=== PATIENT | male | born 1960 | race Asian ===

== ENCOUNTER → 2017-10-18 11:32 | Emergency (ER) | payer OTHER ==
--- OUTSIDE RECORDS SUMMARY | 2017-10-18 12:28 | XMS REPORT ---
:1960 External Reference #:[id number] Author Organization [employer] Address [address] [address] Phone [phone] Care Team Providers Name Role Phone Sheng Hameed III, MD Primary Care Physician Unavailable Payers Type Date Identification Numbers Payment Provider Subscriber Commercial Effective: Policy Number: [id number] Junior Jarquin 2017 Group Number: [id number] [address] PayID: [id number] [place] [address] Problems Description No Information Family History Date Family Member(s) Problem(s) Comments General No Current Problems Social History Type Date Description Comments Lives With Girlfriend Occupation Currently Working ETOH Use Denies alcohol use Smoking Patient is a current smoker, smokes every day Exercise Type/Frequency Does not exercise Allergies, Adverse Reactions, Alerts Date Description Reaction Status Severity Comments 08/08/2015 NKDA active Medications Medication Date Status Form Strength Qnty SIG Indications Ordering Provider Multivitamins / Active Capsules 1 by Unknown 0000 mouth every day Ra Allergy / Active Tablets 180mg daily Unknown Relief 0000 Fluticasone / Active Suspension 50mcg/Act 2 sprays Unknown Propionate 0000 each nostril daily as needed [place] 08/11/ Hx Tablets 5-325mg 40tabs one to Emely 2015 - two tabs Gutierrez, 10/17/ by mouth M.D. 2017 every 4-6 hours as needed pain [place] 08/08/ Hx Tablets 5-325mg 30tabs 1-2 by S66.121A Emely 2014 - mouth Gutierrez, 10/17/ q4-6 M.D. 2017 hour as needed pain Keflex / Hx Capsules 500mg 1 by Unknown 0000 - mouth 2017 times a day Vital Signs Date Vital Result Comment 10/18/2017 Height 65.75 inches 5'5.75" Weight 125.00 lb Heart Rate 75 /min BP Systolic Sitting 98 mmHg BP Diastolic Sitting 78 mmHg Body Temperature 97.6 F O2 % BldC Oximetry 98 % BMI (Body Mass Index) 20.3 kg/m2 09/29/2015 Height 67 inches 5'7" Weight 130.00 lb Pain Level 5 BMI (Body Mass Index) 20.4 kg/m2 09/08/2015 Height 67 inches 5'7" Weight 130.00 lb Pain Level 5 BMI (Body Mass Index) 20.4 kg/m2 08/29/2015 Height 67 inches 5'7" Weight 130.00 lb Pain Level 1 BMI (Body Mass Index) 20.4 kg/m2 08/11/2015 Height 67 inches 5'7" Weight 130.00 lb Pain Level 3 BMI (Body Mass Index) 20.4 kg/m2 08/08/2015 Height 67 inches 5'7" Weight 130.00 lb Heart Rate 70 /min BP Systolic Sitting 134 mmHg BP Diastolic Sitting 95 mmHg Pain Level 8 BMI (Body Mass Index) 20.4 kg/m2 Results Description No Information Procedures Date CPT Code Description Status 08/16/2015 02572 Repair Flexor Tendon W/O Free Graft Completed 08/16/2015 65613 Repair Flexor Tendon W/O Free Graft Completed 08/16/2015 87491 Repair Flexor Tendon W/O Free Graft Completed 08/16/2015 92235 Repair Flexor Tendon W/O Free Graft Completed Encounters Type Date Location Provider CPT E/M Dx Office Visit 08/11/2015 [facility] Gutierrez [address] S66.121D 8:30a [facility] S66.121D S66.123D S66.123D S64.491D S64.491D Office Visit 08/08/2015 1:10p [facility]ely Gutierrez, [address] S66.121A [facility] S64.491A S66.123A S66.121A Plan of Care 10/18/2017 - Sheng Hameed M.D.R45.851 Suicidal ideationsComments:PHQ-9 score of 24 including active daily suicidal ideation; sx all due to his unrelenting vertigo per pt, but with active suicidal thoughts, emergent mental health eval via the ER [id number] Dizziness and giddinessComments:15 month hx steady daily vertigo sx. ? abrupt onset, aggravated by any head movments and a bit better at rest. (+) lengReferral:John Sanches M.D., Neurology
[2017-10-18 12:35] LABS: Hematocrit 43 % (42-52); Hemoglobin 14.7 g/dl (14.0-18.0); Mean Corpuscular HGB Conc 34 g/dl (31-36); Mean Corpuscular Hemoglobin 33 pg (27-31); Mean Corpuscular Volume 97 fL (80-94); Mean Platelet Volume 7 um3 (7.4-10.4); Red Blood Count 4.48 10^6/ul (4.0-5.4); Red Cell Distribution Width 14 % (10.5-15); White Blood Count 13.7 10^3/ul (3.5-10.8)
[2017-10-18 12:45] LABS: Urine Bilirubin Negative (Negative); Urine Glucose Negative (Negative); Urine Nitrite Negative (Negative)
[2017-10-18 12:50] LABS: ALT 16 U/L (7-52); AST 17 U/L (13-39); Albumin 4.3 g/dL (3.2-5.2); Alkaline Phosphatase 48 U/L (34-104); Anion Gap 4 mmol/L (2-11); BUN/Creatinine Ratio 10.3 (8-20); Blood Urea Nitrogen 9 mg/dL (6-24); CO2 Carbon Dioxide 30 mmol/L (22-32); Calcium 9.1 mg/dL (8.6-10.3); Chloride 105 mmol/L (101-111); EGFR African American 117.2 (>60); EGFR Non-African American 91.1 (>60); Globulin 2.8 g/dL (2-4); Glucose 95 mg/dL (70-100); Potassium 4.2 mmol/L (3.5-5.0); Sodium 139 mmol/L (133-145); Total Protein 7.1 g/dL (6.4-8.9)
[2017-10-18 12:56] LABS: Benzodiazepine Urine Screen None Detected (None Detect)
[2017-10-18 13:13] LABS: Acetaminophen < 15 mcg/mL; Alcohol < 10 mg/dL (<10); Salicylate < 2.50 mg/dL (<30)
[2017-10-18 13:27] LABS: TSH (Thyroid Stimulating Horm) 0.84 mcIU/mL (0.34-5.60)
[2017-10-18 14:37] VITALS: BP 116/77
--- NOTE | 2017-10-19 07:57 | ED ---
Dago Gaspar Angela, scribed for Sheng Pablo MD on 10/18/17 at 1229 . Psychiatric Complaint - HPI Summary HPI Summary: This pt is a 57 y/o male [facility]. Pt's PCP, Dr. Hameed, referred the pt to the ED for a concern for SI. Pt notes he has a lot of stress in his life now and admits feeling depressed. He denies SI thoughts and plan. Per , pt gets short tempered. Pt additionally c/o dizziness and nausea, he states he still feels dizzy. Pt had an MRI for dizziness that was negative. Pt is in physical therapy for vertigo. He has not seen a neurologist yet but will see one if he doesn't pass his test today at PT. Per , neurologist will call next week for an appointment. Pt finished meclizine for the dizziness, but notes it does not alleviate his nausea. - History Of Current Complaint Chief Complaint: EDMentalHealth Time Seen by Provider: 10/18/17 11:50 Hx Obtained From: Patient Onset/Duration: Lasting Days, Still Present Timing: Days Character: Depressed Aggravating Factor(s): Recent Stress Alleviating Factor(s): Nothing Has Suicidal: Denies: Thoughts, With A Plan - Allergies/Home Medications Allergies/Adverse Reactions: Allergies Allergy/AdvReac Type Severity Reaction Status Date / Time No Known Allergies Allergy Verified 08/16/15 12:15 Home Medications: Home Medications Fexofenadine HCl [Allergy Relief] 180 mg PO DAILY PRN 10/18/17 [History Confirmed 10/18/17] Fluticasone NASAL SPRAY 50MCG* [Flonase NASAL SPRAY 50MCG*] 2 spray BOTH NARES DAILY 10/18/17 [History Confirmed 10/18/17] PMH/Surg Hx/FS Hx/Imm Hx Endocrine/Hematology History: Denies: Hx Diabetes Cardiovascular History: Denies: Hx Hypertension GI History: Reports: Hx Gastroesophageal Reflux Disease Sensory History: Denies: Hx Contacts or Glasses, Hx Hearing Aid Opthamlomology History: Denies: Hx Contacts or Glasses - Surgical History Surgery Procedure, Year, and Place: [facility]. REMOVAL HARDWARE L [facility] Hx Anesthesia Reactions: No Infectious Disease History: No Infectious Disease History: Denies: Traveled Outside the [place] in Last 30 Days - Family History Known Family History: Negative: Hypertension, Diabetes - Social History Alcohol Use: None Substance Use Type: Reports: None Smoking Status (MU): Former Smoker Length of Time of Smoking/Using Tobacco: 30 YRS Have You Smoked in the Last Year: Yes Review of Systems Negative: Fever, Chills Eyes: Negative Cardiovascular: Negative Respiratory: Negative Positive: Nausea Genitourinary: Negative Musculoskeletal: Negative Skin: Negative Neurological: Other - dizziness Psychological: Other - recent stress, short tempered (per ) Positive: Depressed. Negative: Other - SI thoughts/plan All Other Systems Reviewed And Are Negative: Yes Physical Exam - Summary Physical Exam Summary: VITAL SIGNS: Reviewed. GENERAL: Patient is a well-developed and nourished male who is lying comfortable in the stretcher. Patient is not in any acute respiratory distress. HEAD AND FACE: No signs of trauma. No ecchymosis, hematomas or skull depressions. No sinus tenderness. EYES: PERRLA, EOMI x 2, No injected conjunctiva, no nystagmus. EARS: Hearing grossly intact. Ear canals and tympanic membranes are within normal limits. MOUTH: Oropharynx within normal limits. NECK: Supple, trachea is midline, no adenopathy, no JVD, no carotid bruit, no c- spine tenderness, neck with full ROM. CHEST: Symmetric, no tenderness at palpation LUNGS: Clear to auscultation bilaterally. No wheezing or crackles. CVS: Regular rate and rhythm, S1 and S2 present, no murmurs or gallops appreciated. ABDOMEN: Soft, non-tender. No signs of distention. No rebound no guarding, and no masses palpated. Bowel sounds are normal. EXTREMITIES: FROM in all major joints, no edema, no cyanosis or clubbing. NEURO: Alert and oriented x 3. No acute neurological deficits. Speech is normal and follows commands. SKIN: Dry and warm PSYCH: Denies any suicidal thoughts or plan. No homicidal thoughts or plan. No signs of psychosis or pressure speech. No tangential speech. Triage Information Reviewed: Yes Vital Signs On Initial Exam: Initial Vitals Temp Pulse Resp BP Pulse Ox 97.5 F 74 18 131/79 98 10/18/17 11:36 10/18/17 11:36 10/18/17 11:36 10/18/17 11:36 10/18/17 11:36 Vital Signs Reviewed: Yes Diagnostics - Vital Signs Vital Signs Temp Pulse Resp BP Pulse Ox 10/18/17 11:36 97.5 F 74 18 131/79 98 - Laboratory Result Diagrams: 10/18/17 12:25 10/18/17 12:25 Lab Statement: Any lab studies that have been ordered have been reviewed, and results considered in the medical decision making process. Course/Dx - Course Assessment/Plan: This pt is a 57 y/o male [facility]. Pt 's PCP, Dr. Hameed, referred the pt to the ED for a concern for SI. Pt notes he has a lot of stress in his life now and admits feeling depressed. He denies SI thoughts and plan. Per , pt gets short tempered. Pt additionally c/o dizziness and nausea, he states he still feels dizzy. Pt had an MRI for dizziness that was negative. Pt is in physical therapy for vertigo. He has not seen a neurologist yet but will see one if he doesn't pass his test today at PT. Per , neurologist will call next week for an appointment. Pt finished meclizine for the dizziness, but notes it does not alleviate his nausea. Test results without any abnormalities. Pt is medically cleared at 13:00. Pt is waiting for [facility]. Pt was evaluated by Dr. Velasco, who recommends discharge. Pt will be discharged home with diagnosis of adjustment disorder. - Differential Dx/Clinical Impression Provider Diagnosis: Adjustment disorder Discharge - Discharge Plan Condition: Stable Disposition: HOME Referrals: Sheng Hameed MD [Primary Care Provider] - The documentation as recorded by the Dago cronin Angela accurately reflects the service I personally performed and the decisions made by me, Sheng Pablo MD.
== END | disposition home or self-care (01) ==
LOC: ED 11:32
DX: F43.20 Adjustment disorder, unspecified (principal); K21.9 Gastro-esophageal reflux disease without esophagitis; Z87.891 Personal history of nicotine dependence
CPT/HCPCS: 36415; 80053; 80307; 80320; 80329; 81003; 84443; 85025; 99284; G0480